=== PATIENT | male | born 1980 | race Two or more races ===

== ENCOUNTER → 2019-01-29 | Emergency (ER) | payer BC ==
[~2019-01-29] VITALS: Ht 185.4 cm; Wt 115.7 kg
[2019-01-29 18:48] VITALS: BP 147/99
== END | disposition left against medical advice (07) ==
LOC: ER 18:45
DX: S61.216A Laceration without foreign body of right little finger without damage to nail, initial encounter (principal); Z53.21 Procedure and treatment not carried out due to patient leaving prior to being seen by health care provider; W26.0XXA Contact with knife, initial encounter; Y93.89 Activity, other specified; Y99.8 Other external cause status; Y92.89 Other specified places as the place of occurrence of the external cause

== ENCOUNTER 2020-03-29 16:09 | Emergency (ER) | payer BC ==
[~2020-03-29] VITALS: Ht 185.4 cm; Wt 117.9 kg
[2020-03-29 16:22] VITALS: BP 149/92
== END 2020-03-29 18:05 | disposition left against medical advice (07) ==
LOC: ER 16:09
DX: R10.9 Unspecified abdominal pain (principal); Z53.21 Procedure and treatment not carried out due to patient leaving prior to being seen by health care provider

== ENCOUNTER 2020-04-01 01:22 | Emergency (ER) | payer BC ==
[~2020-04-01] VITALS: Ht 185.4 cm; Wt 117.9 kg
[2020-04-01 02:23] LABS: Urine WBC None Seen /hpf (0 - 3)
[2020-04-01 02:26] LABS: Basophils # (auto) 0.1 10 ^3/uL (0-0.2); Eosinophils # (auto) 0.2 10 ^3/uL (0-0.8); Eosinophils % (auto) 2.2 % (0.0-7.0); Hematocrit 44.8 % (41.0-53.0); Hemoglobin 15.5 g/dL (13.5-17.5); Lymphocytes # (auto) 3.3 10 ^3/uL (0.4-5.4); Lymphocytes % (auto) 35.2 % (10.0-50.0); Mean Corpuscular Hemoglobin 31.7 pg (28.0-32.0); Mean Corpuscular Hgb Conc. 34.7 g/dL (32.0-36.0); Mean Corpuscular Volume 91.3 fL (80.0-100.0); Monocytes # (auto) 0.7 10 ^3/uL (0-1.3); Monocytes % (auto) 7.8 % (0.0-12.0); Neutrophils # (auto) 5.1 10 ^3/uL (1.6-8.6); Neutrophils % (auto) 53.8 % (37.0-80.0); Nucleated Red Blood Cells % 0.2 %; Platelet Count (auto) 302 10^3/uL (140-450); Red Blood Cells 4.91 10^6/uL (4.5-5.90); Red Cell Distribution Width 13.3 % (11.8-14.3); White Blood Cell 9.5 10^3/uL (4.4-10.8)
[2020-04-01 02:44] LABS: Albumin 3.8 g/dL (3.4-5.0); Potassium 4.1 mmol/L (3.5-5.1)
[2020-04-01 02:48] LABS: BUN/Creatinine Ratio 15.9; Bilirubin, Total 0.3 mg/dL (0.2-1.0); Total Protein 7.2 g/dL (6.4-8.2)
[2020-04-01 03:01] LABS: Urine Bacteria NONE SEEN /hpf (None Seen); Urine Blood TRACE /uL (Negative); Urine Specific Gravity 1.002 (1.001-1.035)
[2020-04-01 04:29] VITALS: BP 145/94
[2020-04-01] MEDS ORDERED: methylPREDNISolone SOD SUCC 125 MG/2 ML VL IM ONE (05:00)
[2020-04-01] MEDS ORDERED: KETOROLAC TROMETH 60MG/2ML VIAL IM ONE (05:00)
== END 2020-04-01 06:18 | disposition home or self-care (01) ==
LOC: ER 01:22
DX: N13.2 Hydronephrosis with renal and ureteral calculous obstruction (principal); Z87.442 Personal history of urinary calculi
CPT/HCPCS: 36415; 74176; 80053; 81001; 85025; 96372; 99284; J1885; J2930

== ENCOUNTER 2020-04-10 14:05 | Inpatient (IN) | payer BC ==
[~2020-04-10] VITALS: Ht 182.9 cm; Wt 113.7 kg
[2020-04-10] MEDS ORDERED: ONDANSETRON HCL 4 MG/2 ML VIAL IV ONE (14:45)
[2020-04-10] MEDS ORDERED: MORPHINE SULFATE 4 MG/ML SYR/VIAL IV ONE (14:45)
[2020-04-10] MEDS ORDERED: KETOROLAC TROMETH 30 MG/ML 1ML VIAL IV ONE (14:45)
[2020-04-10] MEDS ORDERED: SODIUM CHLORIDE 0.9% 1,000 ML IVB ONE (14:45)
[2020-04-10 15:44] LABS: Basophils # (auto) 0.1 10 ^3/uL (0-0.2); Basophils % (auto) 0.6 % (0.0-2.0); Eosinophils # (auto) 0 10 ^3/uL (0-0.8); Eosinophils % (auto) 0.2 % (0.0-7.0); Hematocrit 45.4 % (41.0-53.0); Hemoglobin 15.2 g/dL (13.5-17.5); Lymphocytes # (auto) 1.7 10 ^3/uL (0.4-5.4); Lymphocytes % (auto) 12.4 % (10.0-50.0); Mean Corpuscular Hemoglobin 30.4 pg (28.0-32.0); Mean Corpuscular Hgb Conc. 33.6 g/dL (32.0-36.0); Mean Corpuscular Volume 90.4 fL (80.0-100.0); Monocytes # (auto) 1.1 10 ^3/uL (0-1.3); Monocytes % (auto) 8.1 % (0.0-12.0); Neutrophils # (auto) 10.7 10 ^3/uL (1.6-8.6); Neutrophils % (auto) 78.7 % (37.0-80.0); Platelet Count (auto) 295 10^3/uL (140-450); Red Blood Cells 5.02 10^6/uL (4.5-5.90); White Blood Cell 13.6 10^3/uL (4.4-10.8)
[2020-04-10 15:48] LABS: Urine Bacteria NONE SEEN /hpf (None Seen); Urine Blood 3+ /uL (Negative); Urine Specific Gravity 1.026 (1.001-1.035); Urine WBC 3 /hpf (0 - 3)
[2020-04-10 15:59] LABS: Albumin 4.2 g/dL (3.4-5.0); Calcium 8.9 mg/dL (8.5-10.1); Potassium 4.1 mmol/L (3.5-5.1)
[2020-04-10 16:05] LABS: BUN/Creatinine Ratio 19.6; Bilirubin, Total 1.3 mg/dL (0.2-1.0); Total Protein 7.4 g/dL (6.4-8.2)
[2020-04-10] MEDS ORDERED: MORPHINE SULF INJ 2 MG/ML SYRINGE 1ML IV PRN ×2 (16:15→16:45)
[2020-04-10] MEDS ORDERED: NITROGLYCERIN 0.4 MG SL TAB SL PRN (16:15)
[2020-04-10] MEDS ORDERED: TAMSULOSIN HYDROCHLORIDE 0.4 MG CAP PO ONE (16:45)
[2020-04-10] MEDS: SODIUM CHLORIDE 0.9% 1,000 ML IV SCH (16:45)
[2020-04-10] MEDS ORDERED: PROMETHAZINE HCL 25 MG/ML 1ML IV PRN (16:45)
[2020-04-10] MEDS ORDERED: ACETAMINOPHEN 500 MG TAB PO PRN (16:45)
[2020-04-10] MEDS ORDERED: cefTRIAXone 1GM/50ML D5W 50 ML IV ONE (16:45)
[2020-04-10] MEDS ORDERED: traMADol HCL 50 MG TAB PO PRN (16:45)
[2020-04-10] MEDS ORDERED: TEMAZEPAM 15 MG CAP PO PRN (16:45)
[2020-04-10] MEDS ORDERED: MANNITOL FTV 25% 12.5 GM/50 ML 50 ML IV ONE (17:00)
--- NOTE | 2020-04-10 17:15 | NUR ---
RECEIVED PATIENT TO THE FLOOR AWAKE ALERT AND ORIENTED, PATIENT COMPLAINING OF PAIN. BED LOCKED IN LOWEST POSITION WITH TWO SIDE RAILS UP AND CALL LIGHT IN REACH. INSTRUCTED THE PATIENT ON THE PLAN OF CARE AND TO CALL IF ANYTHING IS NEEDED.
[2020-04-10] MEDS ORDERED: TAM04C PO (18:26)
--- NOTE | 2020-04-10 19:25 | NUR ---
Opening Shift Note Assumed care of patient. Pt is awake and alert, oriented X 4. No S/S of respiratory distress. Pt reports severe pain. Pt Will be medicated per Dr's order. Bed is in lowest locked position, bed rails up X 2, call light is within reach. Instructed on POC and to call for assistance PRN. Will continue to monitor for changes Q1hr and PRN.
--- NOTE | 2020-04-10 19:30 | NUR ---
Pain Pt complains of severe R. flank pain 03/29. Hospitalist paged.
--- NOTE | 2020-04-10 19:35 | NUR ---
Pain assessment Hospitalist called back. New orders for pain meds received, verified, read back, and will be implemented. Will continue pt's care.
[2020-04-10] MEDS ORDERED: KETOROLAC TROMETH 60MG/2ML VIAL IM ONE (19:45)
[2020-04-10] MEDS ORDERED: KETOROLAC TROMETH 30 MG/ML 1ML VIAL IV PRN (19:45)
[2020-04-10 20:00] VITALS: BP 129/85
[2020-04-10] MEDS: FAMOTIDINE 20 MG TAB PO SCH (21:48)
[2020-04-10 22:00] VITALS: BP 129/85
[2020-04-10] MEDS ORDERED: HYDROmorphone HCL 2 MG/ML VL IV ONE (22:00)
[2020-04-11] MEDS: SODIUM CHLORIDE 0.9% 1,000 ML IV SCH ×2 (02:45→12:45)
[2020-04-11 05:00] VITALS: BP 116/60
[2020-04-11 06:28] LABS: Basophils # (auto) 0 10 ^3/uL (0-0.2); Basophils % (auto) 0.5 % (0.0-2.0); Eosinophils # (auto) 0.1 10 ^3/uL (0-0.8); Eosinophils % (auto) 0.8 % (0.0-7.0); Hematocrit 42.6 % (41.0-53.0); Hemoglobin 14.6 g/dL (13.5-17.5); Mean Corpuscular Hemoglobin 31.4 pg (28.0-32.0); Mean Corpuscular Hgb Conc. 34.2 g/dL (32.0-36.0); Mean Corpuscular Volume 91.8 fL (80.0-100.0); Monocytes # (auto) 0.8 10 ^3/uL (0-1.3); Monocytes % (auto) 8.7 % (0.0-12.0); Platelet Count (auto) 271 10^3/uL (140-450); Red Blood Cells 4.64 10^6/uL (4.5-5.90); Red Cell Distribution Width 13.2 % (11.8-14.3); White Blood Cell 8.9 10^3/uL (4.4-10.8)
--- NOTE | 2020-04-11 07:45 | NUR ---
Opening Shift Note Assumed care of patient, awake and alert. No S/S of distress/SOB or pain. Instructed on POC and to call for assist PRN, will continue to monitor for changes Q1hr and PRN. Bed locked in lowest position with two side rails up and call light in reach.
[2020-04-11 08:00] VITALS: BP 126/82
[2020-04-11] MEDS: FAMOTIDINE 20 MG TAB PO SCH (08:38)
[2020-04-11 09:00] VITALS: BP 126/82
[2020-04-11] MEDS ORDERED: cefTRIAXone 1GM/50ML D5W 50 ML IV SCH (09:00)
--- NOTE | 2020-04-11 11:35 | NUR ---
MACK MARTIN AT BEDSIDE.
[2020-04-11] MEDS ORDERED: MANNITOL FTV 25% 12.5 GM/50 ML 50 ML IV ONE (11:45)
[2020-04-11 13:00] VITALS: BP 131/92
[2020-04-11] MEDS ORDERED: TAM04C PO (15:25)
[2020-04-11 16:15] VITALS: BP 126/82
--- NOTE | 2020-04-11 16:38 | NUR ---
Discharge instructions given as ordered. Encourage to follow up with PMD as instructed. All questions and concerns addressed. Patient verbalized understanding. Medication reconciliation form completed and copy given to patient. No Home medications held in Pharmacy and none to be returned to patient, and no needed vaccines given. IV removed with catheter intact, pressure dressing applied. Patient ambulated to vehicle via wheelchair with all personal belongings. No distress noted at time of departure.
[2020-04-11 17:00] VITALS: BP 134/84
[2020-04-11] MEDS ORDERED: TAMSULOSIN HYDROCHLORIDE 0.4 MG CAP PO SCH (18:00)
== END 2020-04-11 16:35 | disposition home or self-care (01) | DRG 694 ==
LOC: ER 14:05 → WEST WING 14:06 → CENTRAL 17:15
PROVIDERS: ADMIT Internal Medicine; ATTEND Internal Medicine
DX: N13.2 Hydronephrosis with renal and ureteral calculous obstruction (principal); D84.9 Immunodeficiency, unspecified; E66.01 Morbid (severe) obesity due to excess calories; F12.90 Cannabis use, unspecified, uncomplicated; Z83.3 Family history of diabetes mellitus; Z68.34 Body mass index [BMI] 34.0-34.9, adult; Z87.442 Personal history of urinary calculi
CPT/HCPCS: 36415; 74018; 74176; 80053; 81001; 85025; 87081; 87086; G0378; J0696; J1885; J2405

== ENCOUNTER 2024-02-09 03:33 | Emergency (ER) | payer MEDICAID ==
[~2024-02-09] VITALS: Ht 185.4 cm; Wt 136.0 kg
[~2024-02-09 03:33] MED LIST: TAMS-35 PO
[2024-02-09 03:38] VITALS: BP 166/99; RESP 16
[2024-02-09] MEDS: HYDROcodone-ACET 5/325MG TAB PO ONE (05:06)
[2024-02-09] MEDS: ONDANSETRON ODT 4 MG TAB PO ONE (05:06)
[2024-02-09] MEDS ORDERED: ACE3T PO (05:18)
[2024-02-09 05:37] VITALS: PULSE 111; O2SAT 95
== END 2024-02-09 05:40 | disposition home or self-care (01) ==
LOC: ER 03:33
DX: S82.142A Displaced bicondylar fracture of left tibia, initial encounter for closed fracture (principal); S82.492A Other fracture of shaft of left fibula, initial encounter for closed fracture; F15.90 Other stimulant use, unspecified, uncomplicated; Z79.899 Other long term (current) drug therapy; Z87.442 Personal history of urinary calculi; V03.99XA Pedestrian with other conveyance injured in collision with car, pick-up truck or van, unspecified whether traffic or nontraffic accident, initial encounter; Y93.89 Activity, other specified; Y92.89 Other specified places as the place of occurrence of the external cause; Y99.8 Other external cause status
CPT/HCPCS: 29505; 73562; 73590; 99284; J7120; Q0162